=== PATIENT | male | born 1945 | race Caucasian/White ===

== ENCOUNTER 2017-03-23 12:16 | Observation (INO) ==
[2017-03-23] MEDS ORDERED: Aspirin 325 MG TABLET PO ONE (12:27)
--- NOTE | 2017-03-23 12:30 | Emergency Department Note ---
Disposition Clinical Impression: Chest pain Qualifiers: Chest pain type: unspecified Qualified Code(s): R07.9 - Chest pain, unspecified Disposition: Admitted As Inpatient Condition: Undetermined Referrals: NONE,PCP [Primary Care Provider] - Forms: ED Satisfaction Letter Time of Disposition: 13:35 Chest Pain HPI - General Chief Complaint: ED Chest Pain Stated Complaint: chest pain Time Seen by Provider: 03/23/17 12:18 Source: patient Mode of arrival: ambulatory Limitations: no limitations Vital Signs Reviewed: Yes Nursing Notes Reviewed: Yes - History of Present Illness HPI Narrative: 71-year-old male with history of active bladder cancer arrives [facility] emergency department complaining of retrosternal chest pain radiating to the left chest wall as well as the left axilla that began at roughly 8:30 this morning and has progressively worsened. The patient states that walking up steps exacerbated the pain. The patient had some exertional dyspnea associated with this. The patient is still experiencing the pain at this time. He is not hypertensive, not hyperlipidemic, nondiabetic. No premature family history. The patient states that he has had a cardiac catheter in the past that had no stents placed but it is been "quite some time" . Patient denies any other complaints at this time. Patient does have a Lee sign. Pt complaint: chest pain Onset (ago): hour(s) (4) Duration: constant, gradually worsening Onset: during rest, during exertion Pain Location: substernal, left chest Severity: moderate Severity scale (1-10): 6 Quality: aching Pain Radiation: LUE Improves with: nothing Worsens with: exertion Associated symptoms: Reports: dyspnea Treatments prior to arrival chest pain: none - Related Data On Oral Contraceptives: No Previous Rx's Medication Instructions Recorded HYDROcodone/Acet 5/325 mg [[place] 1 tab PO Q4H PRN #20 tab 11/07/16 5-325 mg] Phenazopyridine HCl [Pyridium] 200 mg PO TIDAC PRN #20 tab 11/07/16 Allergies Allergy/AdvReac Type Severity Reaction Status Date / Time Grapefruit AdvReac See Verified 11/03/16 14:08 Comments Zolpidem [From Ambien] AdvReac See Verified 11/03/16 14:08 Comments All systems ED: reviewed and negative except as stated. Constitutional: Denies: fever, chills, weakness, weight change Eyes: Denies: eye pain, eye discharge, vision change ENT ED: Denies: ear pain, throat pain, dental pain, hearing loss, epistaxis, congestion, dysphagia Cardiovascular: Reports: chest pain, dyspnea on exertion. Denies: palpitations , edema, syncope Respiratory: Reports: dyspnea. Denies: cough, wheezes, hemoptysis Gastrointestinal: Denies: abdominal pain, nausea, vomiting Genitourinary: Denies: urgency Musculoskeletal: Denies: back pain, neck pain, arthralgia, myalgia Neurological: Denies: headache, weakness, numbness Chest Pain PMH - Past Medical History Medical history: Reports: asthma, COPD, GERD, hyperlipidemia, hypertension, kidney stones, other Surgical history: Reports: appendectomy, other Psychiatric history: Reports: no psych history - Social History Smoking Status: Former smoker Alcohol use: Reports: none Drug use: Reports: none Physical Exam - General Limitations: no limitations General appearance: alert, in no apparent distress - Head Head exam: atraumatic, normocephalic, normal inspection - Eye Eye exam: Present: normal appearance, PERRL, EOMI - ENT ENT exam: normal exam, normal oropharynx, mucous membranes moist - Neck Neck exam: Present: normal inspection, full ROM, trachea midline - Chest Chest inspection: Present: normal inspection, symmetric chest wall rise - Respiratory Respiratory exam: Present: normal lung sounds bilaterally - Cardiovascular Cardiovascular exam: Present: regular rate, normal rhythm, normal heart sounds - Abdominal Exam Abdominal exam: Present: soft, Non-Tender. Absent: tenderness, distention, guarding, rebound, rigidity - Extremities Exam Extremities exam: Present: normal inspection, full ROM. Absent: tenderness, pedal edema - Neurological Exam Neurological exam: Present: alert - Skin Skin exam: Present: warm, dry, intact, normal color Course - Reevaluation(s) Reevaluation #1: Bedside ultrasound revealed no gallbladder wall thickening, no cholelithiasis, no pericholecystic fluid, no dilation of the common bile duct. Time: 13:04 Chest Pain - MDM Narrative Medical decision making narrative: Work up emergency Department demonstrates no acute process. The patient's gallbladder was ultrasounded at bedside without any acute findings, chest x-ray demonstrates no acute findings. EKG demonstrates no changes. Troponin is negative. After discussion with the patient and relief with nitroglycerin while experiencing exertional dyspnea and chest pain on exertion, we will admit the patient to the hospitalist. The patient was accepted by Dr. Ken. - Medical Records Medical records reviewed: Yes I reviewed the patient's medical records. - Lab Data Lab results reviewed: Yes I reviewed the patient's lab results. Result diagrams: 03/23/17 12:40 03/23/17 12:40 Lab Results 03/23/17 03/23/17 03/23/17 Range/Units 12:40 12:40 12:40 WBC 8.9 (4.3-11.1) K/mcL RBC 4.89 (4.19-5.50) M/mcL Hgb 14.3 (12.9-16.9) g/dL Hct 43.1 (37.5-50.1) % MCV 88.1 (83.0-100.0) fL MCH 29.2 (28.0-33.3) pg MCHC 33.2 (31.6-35.5) g/dL RDW 13.2 (11.5-14.5) % Plt Count 223 (140-400) K/mcL MPV 10.7 (9.4-12.4) fL Immature Gran % 0.2 (0-4) % Seg Neutrophils % 58.8 % Lymphocytes % 30.1 % Monocytes % 7.4 % Eosinophils % 2.5 % Basophils % 1.0 % Neutrophils # 5.2 (1.6-8.9) K/mcL Lymphocytes # 2.7 (0.6-4.6) K/mcL Monocytes # 0.7 (0.0-1.3) K/mcL Eosinophils # 0.2 (0.0-0.6) K/mcL Basophils # 0.1 (0.0-0.2) K/mcL Immature Plt Fraction 5.9 (1.1-6.1) % D-Dimer 551 H (0-500) ng/mLFEU Sodium 141 (136-145) mEq/L Potassium 4.0 (3.5-4.5) mEq/L Chloride 108 (98-109) mEq/L Carbon Dioxide 26 (19-29) mEq/L BUN 13 (8-26) mg/dL Creatinine 0.96 (0.72-1.25) mg/dL Est GFR ( Amer) > 60 (> 60) Est GFR (Non-Af Amer) > 60 (> 60) BUN/Creatinine Ratio 14 (6-26) Glucose 92 (70-99) mg/dL Calculated Osmolality 292 (280-300) Calcium 9.4 (8.6-10.8) mg/dL Total Bilirubin 0.8 (0.2-1.2) mg/dL Direct Bilirubin 0.3 (0.0-0.5) mg/dL Indirect Bilirubin 0.5 (0.0-1.2) mg/dL AST 17 (5-34) Units/L ALT 17 (0-55) Units/L Alkaline Phosphatase 50 (38-126) Units/L Troponin I (0-0.03) ng/mL Serum Total Protein 7.3 (6.0-8.3) g/dL Albumin 3.8 (3.5-5.0) g/dL Globulin 3.5 (2.4-3.5) g/dL Albumin/Globulin Ratio 1.1 (1.1-2.2) 03/23/17 Range/Units 12:40 WBC (4.3-11.1) K/mcL RBC (4.19-5.50) M/mcL Hgb (12.9-16.9) g/dL Hct (37.5-50.1) % MCV (83.0-100.0) fL MCH (28.0-33.3) pg MCHC (31.6-35.5) g/dL RDW (11.5-14.5) % Plt Count (140-400) K/mcL MPV (9.4-12.4) fL Immature Gran % (0-4) % Seg Neutrophils % % Lymphocytes % % Monocytes % % Eosinophils % % Basophils % % Neutrophils # (1.6-8.9) K/mcL Lymphocytes # (0.6-4.6) K/mcL Monocytes # (0.0-1.3) K/mcL Eosinophils # (0.0-0.6) K/mcL Basophils # (0.0-0.2) K/mcL Immature Plt Fraction (1.1-6.1) % D-Dimer (0-500) ng/mLFEU Sodium (136-145) mEq/L Potassium (3.5-4.5) mEq/L Chloride (98-109) mEq/L Carbon Dioxide (19-29) mEq/L BUN (8-26) mg/dL Creatinine (0.72-1.25) mg/dL Est GFR ( Amer) (> 60) Est GFR (Non-Af Amer) (> 60) BUN/Creatinine Ratio (6-26) Glucose (70-99) mg/dL Calculated Osmolality (280-300) Calcium (8.6-10.8) mg/dL Total Bilirubin (0.2-1.2) mg/dL Direct Bilirubin (0.0-0.5) mg/dL Indirect Bilirubin (0.0-1.2) mg/dL AST (5-34) Units/L ALT (0-55) Units/L Alkaline Phosphatase (38-126) Units/L Troponin I 0.00 (0-0.03) ng/mL Serum Total Protein (6.0-8.3) g/dL Albumin (3.5-5.0) g/dL Globulin (2.4-3.5) g/dL Albumin/Globulin Ratio (1.1-2.2) - Radiology Data Radiology results reviewed: Yes I reviewed the patient's radiology results. - EKG Data EKG attestation: Yes I reviewed and interpreted this EKG. EKG results narrative: 61 bpm. MS interval 160 ms. QTC 392 ms. Normal axis. Normal sinus rhythm. No ST elevation or ST depression noted. EKG is similar in appearance to EKG from 11/03/2016. No acute changes noted. EKG #2: 1322 58 bpm. MS interval 159 ms. QTC 414 ms. Normal axis. Sinus bradycardia. No ST elevation or ST depression noted. EKG similar appearance to EKG performed earlier today. Attestation Statement - Attestation Attestation: I, Nayan Wolf DO, examined this patient [id number] and my medical decision-making was reviewed with Dr. Rodrigo Ahn, Resident Physician. I agree with the documented findings, disposition and treatment plan as described except to the extent set forth below. Please see my progress notes for details 71-year-old male presents to emergency room with complaint of chest discomfort and pain. Presentation is multiple vague symptoms at this time including epigastric discomfort right-sided abdominal pain right-sided chest wall pain radiating around the chest wall. Patient denies any significant cardiac history. Vital signs reviewed and are otherwise stable. Patient physical exam is clear lungs heart the jugular abdomen is soft nontender nondistended with no guarding no rigidity. ACLS protocol will be followed at this point patient be provided with an aspirin nitroglycerin trial. Chest x-ray EKG labs including CBC chemistry and troponin will be ordered. Patient typically does not have any acute signs of aortic dissection or aneurysm. Symptoms and pain are not consistent with this at this time. Patient will have bedside ultrasound looking at the gallbladder and a workup. Patient does not have any significant history or family history of aortic aneurysm or dissection. Symptoms are intermittent at this time. Patient will most likely require admission for cardiac evaluation. Disposition will be determined once workup is completed. Aspirin as well as labs ordered at this time. Physical exam is otherwise unremarkable. See detailed documentation of physical exam, medical intervention , medical decision-making and disposition and the resident physician's note.
[2017-03-23] MEDS: Nitroglycerin 0.4 MG TAB.SUBL SL PRN ×2 (12:46→12:55)
[2017-03-23 12:48] LABS: Basophils # 0.1 K/mcL (0.0-0.2); Eosinophils # 0.2 K/mcL (0.0-0.6); Eosinophils % 2.5 %; Hematocrit 43.1 % (37.5-50.1); Hemoglobin 14.3 g/dL (12.9-16.9); Immature Granulocytes % 0.2 % (0-4); Immature Platelets 5.9 % (1.1-6.1); Lymphocytes # 2.7 K/mcL (0.6-4.6); Lymphocytes % 30.1 %; Mean Corpuscular HGB Conc 33.2 g/dL (31.6-35.5); Mean Corpuscular Hemoglobin 29.2 pg (28.0-33.3); Mean Corpuscular Volume 88.1 fL (83.0-100.0); Mean Platelet Volume 10.7 fL (9.4-12.4); Monocytes # 0.7 K/mcL (0.0-1.3); Monocytes % 7.4 %; Neutrophils # 5.2 K/mcL (1.6-8.9); Platelet Count 223 K/mcL (140-400); Red Blood Count 4.89 M/mcL (4.19-5.50); Red Cell Distribution Width 13.2 % (11.5-14.5); Segmented Neutrophils % 58.8 %
[2017-03-23 12:59] LABS: BUN/Creatinine Ratio 14 (6-26); Blood Urea Nitrogen 13 mg/dL (8-26); Calcium 9.4 mg/dL (8.6-10.8); Carbon Dioxide 26 mEq/L (19-29); Chloride 108 mEq/L (98-109); Glucose 92 mg/dL (70-99); Osmolality,Calculated 292 (280-300); Sodium 141 mEq/L (136-145); eGFR For African Americans > 60 (> 60); eGFR For Non-African Americans > 60 (> 60)
[2017-03-23 13:19] LABS: Alanine Aminotransferase 17 Units/L (0-55); Albumin 3.8 g/dL (3.5-5.0); Albumin/Globulin Ratio 1.1 (1.1-2.2); Alkaline Phosphatase 50 Units/L (38-126); Aspartate Amino Transferase 17 Units/L (5-34); Bilirubin,Direct 0.3 mg/dL (0.0-0.5); Bilirubin,Indirect 0.5 mg/dL (0.0-1.2); Bilirubin,Total 0.8 mg/dL (0.2-1.2); Globulin 3.5 g/dL (2.4-3.5); Total Protein 7.3 g/dL (6.0-8.3)
[2017-03-23] MEDS ORDERED: *HR* Morphine 2 MG/ML SYRINGE IVP PRN (13:34)
[2017-03-23] MEDS ORDERED: Acetaminophen 325 MG TABLET PO PRN (13:34)
[2017-03-23] MEDS ORDERED: *HR* HYDROcodone/Acet 5/325 mg TABLET PO PRN (13:34)
[2017-03-23] MEDS ORDERED: Ondansetron 4 MG/2 ML VIAL IVP PRN (13:34)
[2017-03-23] MEDS ORDERED: Naloxone 0.4 MG/ML INJ IVP PRN (13:34)
[2017-03-23 15:29] LABS: Bilirubin,Urine Negative (Negative); Blood,Urine Negative (Negative); Clarity,Urine Clear (Clear); Color,Urine Yellow (Yellow); Glucose,Urine (UA) Normal (Normal); Ketones,Urine Negative (Negative); Leukocyte Esterase,Urine Small (Negative); Nitrite,Urine Negative (Negative); PH,Urine 7.5 pH Units (5.0-8.0); Protein,Urine Trace mg/dL (Neg-Trace); Specific Gravity,Urine 1.021 (1.010-1.025); Urobilinogen,Urine Normal (Normal)
[2017-03-23 15:58] LABS: Bacteria,Urine Few per hpf (None-Few); Squamous Epithelial Cell,Urine Few per lpf (None-Few)
[2017-03-23] MEDS ORDERED: Methocarbamol 500 MG TABLET PO PRN (17:48)
--- NOTE | 2017-03-23 17:56 | Internal Med History&Physical ---
Date of Encounter: 03/23/17 Time of Encounter: 17:51 Assessment and Plan (1) Chest pain Current visit: Yes Status: Acute Place the pt into tele for observation Placed him on monitor technician check serial troponin initial Trop was negative EKG reviewed by myself - ZANER, [id number], no acute ST T changes cont ASA, Atenolol Cont statin check FLP in AM Since he is high risk fro ACS - will do exercise stress test Qualifiers: Chest pain type: unspecified Qualified Code(s): R07.9 - Chest pain, unspecified (2) HTN (hypertension) Current visit: Yes Status: Acute resumed home meds Qualifiers: Qualified Code(s): I10 - Essential (primary) hypertension (3) HLD (hyperlipidemia) Current visit: Yes Status: Acute resumed home meds Qualifiers: Qualified Code(s): E78.5 - Hyperlipidemia, unspecified (4) COPD (chronic obstructive pulmonary disease) Current visit: Yes Status: Chronic stable not in exacerbation resumed home INH Qualifiers: Qualified Code(s): J44.9 - Chronic obstructive pulmonary disease, unspecified (5) Bladder cancer Current visit: Yes Status: Chronic Need to f/u with Urologist as an out pt Qualifiers: Qualified Code(s): C67.9 - Malignant neoplasm of bladder, unspecified Internal Medicine - H&P: HPI Chief complaint: chest pain Admitted From: Emergency Dept Plans for Post Hospital Care: Home History of present illness: Mr. Mccracken is a 71-year-old male with history of active bladder cancer, HTN, HLD, COPD not home O2 dependent,presented to [facility] emergency department complaining of retrosternal chest pain radiating to the left chest wall as well as the left axilla that began at roughly 8:30 this morning and has progressively worsened. The patient states that walking up steps exacerbated the pain. The patient had some exertional dyspnea associated with this. No premature family history. The patient states that he has had a cardiac catheter in the past that had no stents placed but it is been "quite some time". Patient denies any other complaints at this time. Denied any active CP now Past Med Surg Social Fam HX - Past Medical History Medical history: asthma, COPD, GERD, hyperlipidemia, hypertension, kidney stones , other Psychiatric history: no psych history - Past Surgical History Surgical History: appendectomy, other - Social History Smoking Status: Former smoker Smokeless Tobacco Status: No Alcohol use: none Drug use: none - Additional Family History Additional family history: Reviewed and deneid any heart problems in the family Internal Medicine - H&P: Meds Albuterol Sulfate [Albuterol Inhaler] 2 puff IH QID PRN 03/23/17 [History] Aspirin 81 mg PO DAILY 03/23/17 [History] Atenolol [Tenormin] 50 mg PO DAILY 03/23/17 [History] Etodolac [Lodine] 400 mg PO BID 03/23/17 [History] Ipratropium [Atrovent Inhaler] 2 puff IH BID 03/23/17 [History] Lidocaine 4% CRM (LMX) [Lmx 4] 1 appl TP TID 03/23/17 [History] Loratadine [Allergy Relief] 10 mg PO DAILY 03/23/17 [History] Methocarbamol [Robaxin] 500 mg PO Q8HR PRN 03/23/17 [History] Mometasone Furoate [Asmanex] 2 puff IH BID 03/23/17 [History] Omeprazole [PriLOSEC] 20 mg PO BID 03/23/17 [History] Sildenafil Citrate [Viagra] 100 mg PO DAILY PRN 03/23/17 [History] Simvastatin [Zocor] 40 mg PO HS 03/23/17 [History] Tamsulosin HCl [Flomax] 0.4 mg PO HS 03/23/17 [History] 3 Allergy/AdvReac Type Severity Reaction Status Date / Time Grapefruit AdvReac See Verified 03/23/17 13:59 Comments Zolpidem [From Ambien] AdvReac See Verified 03/23/17 13:59 Comments All Systems PM: A 10-system review of systems was performed and is negative for pertinent findings except as documented above in the HPI. Review of systems: Reviewed all the systems everything is benign except the systems and symptoms I mentioned in HPI - Constitutional Vitals: Temp Pulse Resp BP Pulse Ox 98 F 51 16 133/70 98 03/23/17 14:43 03/23/17 14:43 03/23/17 14:07 03/23/17 14:43 03/23/17 14:43 General appearance: Present: A&O X 3, pleasant, no acute distress, answers questions appropriately - Head Head exam: Present: atraumatic, normal inspection - Neck Neck exam general surgery: Present: supple - Respiratory Respiratory exam: Present: decreased breath sounds. Absent: rales, respiratory distress, rhonchi, wheezes - Cardiovascular Cardiovascular exam: Present: RRR, +S1, +S2. Absent: systolic murmur - GI/Abdominal GI/Abdominal exam: Present: normal bowel sounds, soft. Absent: distended, rebound, rigid, tenderness - Extremities Exam Extremities exam: Absent: calf tenderness, pedal edema, tenderness - Back Exam Back exam: Absent: CVA tenderness (L), CVA tenderness (R) - Neurological Exam Neurological exam: Present: alert, oriented X3 - Psychiatric Psychiatric exam: Present: normal affect, normal mood Internal Med - H&P Results - Labs CBC & Chem 7: 03/23/17 12:40 03/23/17 12:40 Labs: Urine 03/23/17 Range/Units 15:00 Urine Color Yellow (Yellow) Urine Clarity Clear (Clear) Urine pH 7.5 (5.0-8.0) pH Units Ur Specific [place] 1.021 (1.010-1.025) Urine Protein Trace (Neg-Trace) mg/dL Urine Glucose (UA) Normal (Normal) mg/dL
--- NOTE | 2017-03-23 18:41 | Electrocardiograph Report ---
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
[2017-03-23] MEDS: Beclomethasone 80mcg MDI IH SCH (20:28)
[2017-03-23] MEDS ORDERED: Famotidine 20 MG TABLET PO SCH (21:00)
[2017-03-23] MEDS: Lidocaine 4% CREAM (LMX) 5 GM TP SCH (21:30)
[2017-03-24] MEDS ORDERED: Aspirin Enteric Coated 81 MG Tablet PO SCH (09:00)
[2017-03-24] MEDS ORDERED: Loratadine 10 MG TABLET PO SCH (09:00)
[2017-03-24] MEDS: Beclomethasone 80mcg MDI IH SCH (10:03)
[2017-03-24] MEDS: Lidocaine 4% CREAM (LMX) 5 GM TP SCH (10:06)
[2017-03-24 12:18] VITALS: BP 117/58
--- NOTE | 2017-03-24 14:10 | Discharge Summary ---
Date of Encounter: 03/24/17 Time of Encounter: 14:06 - Discharge Diagnosis (1) Chest pain Priority: Primary Status: Acute Qualifiers: Chest pain type: unspecified Qualified Code(s): R07.9 - Chest pain, unspecified (2) HTN (hypertension) Priority: Secondary Status: Acute Qualifiers: Qualified Code(s): I10 - Essential (primary) hypertension (3) HLD (hyperlipidemia) Priority: Secondary Status: Acute Qualifiers: Qualified Code(s): E78.5 - Hyperlipidemia, unspecified (4) COPD (chronic obstructive pulmonary disease) Priority: Secondary Status: Chronic Qualifiers: Qualified Code(s): J44.9 - Chronic obstructive pulmonary disease, unspecified (5) Bladder cancer Priority: Secondary Status: Chronic Qualifiers: Qualified Code(s): C67.9 - Malignant neoplasm of bladder, unspecified - Discharge Medications Home Medications: Albuterol Sulfate [Albuterol Inhaler] 2 puff IH QID PRN 03/23/17 [History] Aspirin 81 mg PO DAILY 03/23/17 [History] Atenolol [Tenormin] 50 mg PO DAILY 03/23/17 [History] Etodolac [Lodine] 400 mg PO BID 03/23/17 [History] Ipratropium [ATROVENT Inhaler] 2 puff IH BID 03/23/17 [History] Lidocaine 4% CRM (LMX) [Lmx 4] 1 appl TP TID 03/23/17 [History] Loratadine [Allergy Relief] 10 mg PO DAILY 03/23/17 [History] Methocarbamol [Robaxin] 500 mg PO Q8HR PRN 03/23/17 [History] Mometasone Furoate [Asmanex] 2 puff IH BID 03/23/17 [History] Omeprazole [PriLOSEC] 20 mg PO BID 03/23/17 [History] Sildenafil Citrate [Viagra] 100 mg PO DAILY PRN 03/23/17 [History] Simvastatin [Zocor] 40 mg PO HS 03/23/17 [History] Tamsulosin HCl [Flomax] 0.4 mg PO HS 03/23/17 [History] Allergies/Adverse Reactions: 3 Allergy/AdvReac Type Severity Reaction Status Date / Time Grapefruit AdvReac See Verified 03/23/17 13:59 Comments Zolpidem [From Ambien] AdvReac See Verified 03/23/17 13:59 Comments Procedures/tests Complete & Pending: Procedures Performed prior 72 hours Category Date Time Status NM karyn perf SPECT multi [NM] Routine Exams 03/23/17 17:48 Taken SP exercise nuclear stress Routine Y 03/24/17 08:00 Completed Date of admission: 03/23/17 13:39 Primary care physician: PCP [place] - Patient Status Disposition: Home, Self-Care Condition: Good Overall status at discharge: patient is back to baseline - Discharge Instructions Follow Up With: [facility] [Primary Care Provider[facility] - Champ Ontiveros MD [Partnered Physician] - - Diet and Activity Activity: increase activity as tolerated Diet: low salt diet Hospital course: Mr. Mccracken is a 71-year-old male with history of active bladder cancer, HTN, HLD, COPD not home O2 dependent,presented to [facility] emergency department complaining of retrosternal chest pain radiating to the left chest wall as well as the left axilla that began at roughly 8:30 y/d morning and has progressively worsened. The patient states that walking up steps exacerbated the pain. The patient had some exertional dyspnea associated with this. Pt was admitted in the hospital and placed him on cardiac monitor technician. He does not have any acute EKG changes, his serial troponin x 3 were negative. Due to his age and HTN he is at high risk for ACS, so did an exercise nuclear stress test today. His stress test came back as negative for ischemia. His CP also resolved. His CP seems to be part of anxiety too. Counseled about it. Recommend to f/u with his urologist for polypectomy for his bladder cancer. - Time Spent with Patient Total time spent providing and/or coordinating discharge services: - Constitutional Vitals: Temp Pulse Resp BP Pulse Ox 97.8 F 56 17 117/58 94 03/24/17 12:17 03/24/17 12:17 03/24/17 12:17 03/24/17 12:17 03/24/17 12:17 General appearance: Present: A&O X 3, pleasant, no acute distress, answers questions appropriately - Head Head exam: Present: atraumatic, normal inspection - Neck Neck exam general surgery: Present: supple - Respiratory Respiratory exam: Present: decreased breath sounds. Absent: accessory muscle use, rales, rhonchi, wheezes - Cardiovascular Cardiovascular exam: Present: RRR, +S1, +S2. Absent: systolic murmur - GI/Abdominal GI/Abdominal exam: Present: soft. Absent: rebound, rigid - Extremities Exam Extremities exam: Absent: calf tenderness, pedal edema, tenderness - Back Exam Back exam: Absent: CVA tenderness (L), CVA tenderness (R) - Neurological Exam Neurological exam: Present: alert, oriented X3 - Psychiatric Psychiatric exam: Present: normal affect, normal mood
--- NOTE | 2017-03-25 17:39 | Electrocardiograph Report ---
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
== END 2017-03-24 17:00 | disposition home or self-care (01) ==
LOC: 3BNU 12:16 → EMEROO 12:16 → 3BNU 14:35
PROVIDERS: ADMIT Family Medicine; ATTEND Registered Nurse